=== PATIENT | male | born 1980 | race Caucasian/White ===

== ENCOUNTER → 2016-11-27 | Outpatient (CLI) | payer OTHER ==
[~2016-11-27] MED LIST: AMLO10TA2 PO; AMLO2.5T PO; AMPH20TA2 PO; BUSP-8 PO; CYCL10TA6 PO; FLUT0.0529 NAE; FLUT0.15 NAE; GABA-113 PO; LSN/10125 PO; OXYC-57 PO; PRED50TA PO; SENNTAB13 PO; SULF800T23 PO
[2016-11-27 14:33] LABS: SYNOVIAL FLUID APPEARANCE CLOUDY; SYNOVIAL FLUID COLOR AMBER
== END | disposition home or self-care (01) ==
LOC: C.LAB1850 09:10
PROVIDERS: ATTEND Nurse Practitioner Family
DX: M70.51 Other bursitis of knee, right knee (principal)

== ENCOUNTER → 2016-11-29 | Outpatient (CLI) | payer OTHER ==
--- NOTE | 2016-11-29 08:42 | DIAGNOSTIC IMAGING REPORT ---
RIGHT KNEE 2 VIEWS HISTORY: RIGHT KNEE PAIN Right COMPARISON: None. FINDINGS: No acute fracture or dislocation. No knee effusion. Anterior soft tissue swelling. 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 No radiopaque foreign bodies. IMPRESSION: Anterior soft tissue swelling within the right knee. No acute fractures. Electronically signed by: Marco Frey M.D. 11/29/2016 8:40 AM Dictated Date/Time: 11/29/2016 8:38 AM
== END | disposition home or self-care (01) ==
LOC: C.RAD1850 08:21
PROVIDERS: ATTEND Nurse Practitioner Family
DX: M70.51 Other bursitis of knee, right knee (principal); M79.89 Other specified soft tissue disorders

== ENCOUNTER 2016-11-30 16:05 | Emergency (ER) | payer OTHER ==
[~2016-11-30] VITALS: Ht 185.4 cm; Wt 107.8 kg
[~2016-11-30 16:05] MED LIST changes: -AMLO2.5T PO; -FLUT0.15 NAE; -GABA-113 PO; -SULF800T23 PO
[2016-11-30 16:15] VITALS: BP 135/86; PULSE 79; TEMP 36.6; O2SAT 97; Ht 185.4 cm; Wt 107.8 kg
[2016-11-30] MEDS ORDERED: FLUT0.15 NAE (17:10)
[2016-11-30] MEDS ORDERED: AMLO2.5T PO (17:10)
[2016-11-30] MEDS ORDERED: GABA-113 PO (17:12)
[2016-11-30] MEDS ORDERED: SULF800T23 PO (17:12)
--- NOTE | 2016-11-30 17:47 | DIAGNOSTIC IMAGING REPORT ---
RIGHT LOWER EXTREMITY VENOUS DOPPLER HISTORY: R lower leg swelling Right COMPARISON STUDY: None. FINDINGS: There is normal compressibility, flow, and augmentation within the right lower extremity deep venous system. IMPRESSION: No DVT within the right lower extremity Electronically signed by: Marco Frey M.D. 11/30/2016 5:46 PM Dictated Date/Time: 11/30/2016 5:46 PM
--- NOTE | 2016-12-01 00:45 | EMERGENCY ROOM VISIT NOTE ---
ED Visit Note First contact with patient: 16:51 Chief Complaint: Right lower leg pain and swelling. History of Present Illness: Mr. Dow is a 36-year-old white male who ambulates into the ED complaining of right lower leg pain and swelling. Historically patient reports a proximally 1 week ago after work he noted right knee pain and swelling. He was seen at a local urgent care center and was diagnosed with prepatellar bursitis. He was seen by [facility] 3 days ago; a drainage procedure was performed and on testing was positive for staph aureus. He was started on Bactrim and has had 3 doses of this medication. Patient reports this morning he awoke and noticed that he had swelling of the lower leg and pain in the lower leg which he did not previously have. He contacted [employer] who referred him to the emergency department for a Doppler ultrasound to evaluate for deep vein thrombus. Currently patient reports that he is having an achy and throbbing like pain extending from his knee to just above his ankle throughout the right lower leg. He rates this discomfort 6/10. The pain is nonradiating. The pain worsens with palpation and ambulation. He has not identified any alleviating factors related to the pain. He reports he has been using ibuprofen with no relief of his discomfort. He denies any associated symptoms including fevers, chills, sweats, skin eruptions, skin color changes, previous clots, claudication, cramping, recent surgery/inactivity/extended travel, chest pain, shortness of breath, palpitations, lower extremity weakness/numbness/tingling. Review of Systems: As noted above in history of present illness. 8 body systems were reviewed and found to be negative as noted above. Past Medical History: Hypertension, unspecified back surgery. Current Medications: As previously noted, Adderall, lisinopril/ hydrochlorothiazide, Norvasc 6, Flonase, Neurontin. Allergies to Medications: Patient denies. Social History: Patient is currently employed; he feels safe in his home environment; he denies tobacco and alcohol use. Physical Examination: Vital Signs: Date Time Temp Pulse Resp B/P (MAP) Pulse Ox O2 Delivery O2 Flow Rate FiO2 11/30/16 16:15 36.6 79 18 135/86 97 Room Air GENERAL: 36-year-old male in mild distress due to pain, nontoxic-appearing, afebrile and hemodynamically stable. NEUROLOGICAL: Awake, alert and oriented to person, place and time. Answering questions appropriately and following commands. Limped gait. Good hand eye coordination. No focal motor or sensory deficits. SKIN: Warm, dry and pink. THORAX: Lungs sounds are clear to auscultation and equal bilaterally with symmetrical chest wall. No wheezing, rales or rhonchi. No crepitus, tenderness , subcutaneous air or deformities noted. HEART: Regular rate and rhythm. No gallops, rubs or murmurs are appreciated. ABDOMEN: Flat, soft and nontender. Positive bowel sounds in all quadrants. No guarding, rigidity or organomegaly. RIGHT LOWER EXTREMITY: No gross bony deformity. No shortening or malrotation. No tenderness in the hip or thigh. Patient does have diffuse swelling and tenderness over the anterior aspect of the knee. There is no joint line tenderness or ligamentous laxity. Decreased range of motion to approximately 90 of flexion but he does have full range of motion and extension and hyperextension. Negative patellar apprehension test. Negative ballottement test. His Noa's test was not valid due to his pain; he denies clicking, popping or locking of the knee. Throughout the lower leg there is mild edema but no erythema. He has obvious different incises when compared to the left. I do not appreciate any calf tenderness or cords. He does have full range of motion of the ankle with 4/5 muscle strength at the ankle. Throughout the foot the skin was warm and pink capillary refill is brisk and distal pulses and sensations were intact. ED Course: Patient is assessed as noted above. Patient's medication list was reviewed. Patient was offered pain medication and refused. Venous Doppler Ultrasound: Was reviewed by myself and read by the radiologist and shows no evidence of deep vein thrombus. Patient was educated about today's findings and instructed on his treatment plan ; he verbalizes understanding and agreement with this plan. Clinical Impression: Right lower leg pain and swelling. Decision-Making: Initially my differential diagnosis I considered DVT, worsening infection, muscle strain and other causes. Disposition: Patient discharged home in stable condition accompanied by his ; prior to departure he was reassessed and subjectively reported he was feeling better and rated his discomfort 3/10. Plan: Patient was encouraged to continue his current medications as prescribed. Patient was encouraged to alternate ibuprofen and acetaminophen every 3 hours. Patient was encouraged to keep his knee elevated while at rest and use ice on areas of pain and swelling. Patient was encouraged to follow-up with [employer] and keep his upcoming appointment on Saturday. Patient was encouraged return ED for worsening/uncontrolled pain, uncontrolled swelling, fevers, chest pain, shortness of breath, sensations of heart racing or any new/concerning symptoms.
== END 2016-11-30 18:44 | disposition home or self-care (01) ==
LOC: C.EDB 16:07 → C.EDD 18:44
DX: M79.604 Pain in right leg (principal); M79.89 Other specified soft tissue disorders; I10 Essential (primary) hypertension; Z79.899 Other long term (current) drug therapy

== ENCOUNTER 2024-06-18 08:16 | Inpatient (IN) ==
--- NOTE | 2024-05-14 12:36 | PAT Medication Instructions ---
Medication Instructions Date of Service May 14, 2024 Home Medications Medication Instructions Recorded cyclobenzaprine 10 mg tablet 10 mg PO TID PRN muscle spasm #30 //24 tabs hydrocodone 5 mg-acetaminophen 325 1 - 2 tab PO Q6H PRN pain #12 tabs 04/05/24 mg tablet Medication List: gabapentin 300 mg capsule 600 mg PO TID lisinopril 20 mg-hydrochlorothiazide 12.5 mg tablet 1 tab PO QAM modafinil 100 mg tablet 100 mg PO AMHS omeprazole 20 mg capsule,delayed release 20 mg PO DAILYBB cyclobenzaprine 10 mg tablet 10 mg PO TID PRN muscle spasm iron,carbonyl 65 mg-vitamin C 125 mg tablet,delayed release (Vitron-C) 1 tab PO DAILY mometasone 50 mcg/actuation nasal spray (Nasonex 24hr Allergy) 2 spray intranasal DAILY amlodipine 2.5 mg tablet 5 mg PO QAM hydrocodone 5 mg-acetaminophen 325 mg tablet 1 - 2 tab PO Q6H PRN pain methylphenidate HCl 10 mg tablet 10 mg PO DAILYBL ondansetron HCl 4 mg tablet 4 mg PO Q6 PRN prn zolmitriptan 5 mg disintegrating tablet 5 mg PO UD PRN prn MEDICATION INSTRUCTIONS: Continue as directed mometasone 50 mcg/actuation nasal spray (Nasonex 24hr Allergy) 2 spray intranasal DAILY DO NOT take the morning of surgery lisinopril 20 mg-hydrochlorothiazide 12.5 mg tablet 1 tab PO QAM modafinil 100 mg tablet 100 mg PO AMHS methylphenidate HCl 10 mg tablet 10 mg PO DAILYBL iron,carbonyl 65 mg-vitamin C 125 mg tablet,delayed release (Vitron-C) 1 tab PO DAILY Take morning of surgery With a small sip of water, OTHERWISE NOTHING TO EAT OR DRINK AFTER MIDNIGHT: gabapentin 300 mg capsule 600 mg PO TID cyclobenzaprine 10 mg tablet 10 mg PO TID PRN muscle spasm amlodipine 2.5 mg tablet 5 mg PO QAM omeprazole 20 mg capsule,delayed release 20 mg PO DAILYBB hydrocodone 5 mg-acetaminophen 325 mg tablet 1 - 2 tab PO Q6H PRN pain ondansetron HCl 4 mg tablet 4 mg PO Q6 PRN prn zolmitriptan 5 mg disintegrating tablet 5 mg PO UD PRN prn Take evening before surgery gabapentin 300 mg capsule 600 mg PO TID cyclobenzaprine 10 mg tablet 10 mg PO TID PRN muscle spasm hydrocodone 5 mg-acetaminophen 325 mg tablet 1 - 2 tab PO Q6H PRN pain ondansetron HCl 4 mg tablet 4 mg PO Q6 PRN prn Other Notes If you have any questions please call us at [phone] or [phone] or [phone] or [phone]
--- NOTE | 2024-05-25 08:48 | Anesthesiology Consultation ---
Date of Service May 25, 2024 Assessment & Plan (1) Encounter for pre-operative examination: - Infectious disease screening: Per assessment on 05/25/24: No known recent infectious disease contacts or current infectious disease symptoms. - Patient acceptable risk for surgery pending surgeon-ordered PCP preop evaluation (DIEGO Shukla, appt 05/29). Chart Review Chart Review: Patient seen in Pre Admission Testing Teaching & Discussion Pre-Anesthesia Teaching/Discussion Notes: Instructed NPO after midnight before surgery,except medications with 15 cc of water. Medication instructions provided according to the PAT guidelines. History Surgery Operation Date: 06/18/24 07:45 Proposed Procedures p L5-S1 Decompression and Fusion, with Spinal Cord Monitoring - Teja Moon, Height/Weight Height: 6 ft 1 in Weight: 124.6 kg Allergies Allergy/AdvReac Type Severity Reaction Status Date / Time No Known Allergies Allergy Verified 05/07/24 08:01 Medications Home Medications Medication Instructions Recorded Confirmed Last Taken gabapentin 300 mg capsule 600 mg PO TID 04/25/19 05/07/24 Unknown lisinopril 20 1 tab PO QAM 07/02/23 05/07/24 Unknown mg-hydrochlorothiazide 12.5 mg tablet modafinil 100 mg tablet 100 mg PO AMHS 07/02/23 05/07/24 Unknown omeprazole 20 mg capsule,delayed 20 mg PO DAILYBB 07/02/23 05/07/24 Unknown release cyclobenzaprine 10 mg tablet 10 mg PO TID PRN muscle spasm #30 01/17/24 05/07/24 Unknown tabs iron,carbonyl 65 mg-vitamin C 125 1 tab PO DAILY 01/17/24 05/07/24 Unknown mg tablet,delayed release (Vitron-C) mometasone 50 mcg/actuation nasal 2 spray intranasal DAILY 01/17/24 05/07/24 Unknown spray (Nasonex 24hr Allergy) amlodipine 2.5 mg tablet 5 mg PO QAM 04/04/24 05/07/24 Unknown hydrocodone 5 mg-acetaminophen 325 1 - 2 tab PO Q6H PRN pain #12 tabs 04/05/24 05/07/24 Unknown mg tablet methylphenidate HCl 10 mg tablet 10 mg PO DAILYBL 05/07/24 05/07/24 Unknown ondansetron HCl 4 mg tablet 4 mg PO Q6 PRN prn 05/07/24 05/07/24 Unknown zolmitriptan 5 mg disintegrating 5 mg PO UD PRN prn 05/07/24 05/07/24 Unknown tablet Past Medical History Medical History Allergic rhinitis GERD (gastroesophageal reflux disease) Hypertension Lumbar radiculopathy Migraines Narcolepsy Sleep apnea CPAP (compliant) Exercise / Class Metabolic Activity II 4-5 Yardwork/Stairs/Walk up hill Past Family History Family History Mother Cancer Father Coronary heart disease Past Surgical History Surgical History History of lumbar laminectomy 2013- L5-S1 hemilami/microdiscectomy. T12-L1 intradural tumor excision History of wisdom tooth extraction Past Anesthesia History No Hx of Anesthesia Complications and No Family Hx of Anesthesia Complications History of PONV No Hx of PONV and No Hx of Motion Sickness Social History Smoking Status: Never smoker Do You Dip or Chew Tobacco: No Hx Alcohol Use: No Hx Substance Use: No substance use type: does not use Review of Systems Patient denies chest pain, shortness of breath, dyspnea on exertion, fever, chills, cough, wheezing, palpitations. Physical Exam Vital Signs BP 126/81 P 84 TEMP 98.6 SP02 95%RA RESP 18 Physical Full cervical extension range of motion. Full TMJ range of motion. TMD 4 finger breaths Mallampati Score II Dentition: intact Lungs: clear throughout to auscultation Cardiac: regular rate and rhythm, no murmurs noted Spine: normal Carotid arteries: negative bruit Extremities: no LE edema Lab Results Anesthesia Preop Results Results Anesthesia Widget: WBC 5.41 K/ul (4.8-10.8) 05/16/24 Hgb 16.9 g/dl (14.0-18.0) 05/16/24 Hct 48.9 % (42.0-52.0) 05/16/24 Plt 175 K/uL (130-400) 05/16/24 Na 139 mmol/L (136-145) 05/16/24 K 4.0 mmol/L (3.5-5.1) 05/16/24 Cl 102 mmol/L (98-107) 05/16/24 CO2 30 mmol/L (21-32) 05/16/24 BUN 17 mg/dl (6-23) 05/16/24 Creat 0.92 mg/dl (0.6-1.4) 05/16/24 Glucose Level 99 mg/dl (70-99(Fasting)) 05/16/24 PT 10.6 Seconds (9.0-12.0) 05/25/24 PTT 28 Seconds (21-31) 05/25/24 INR 1.0 (0.9-1.1) 05/25/24 Urine Color Yellow 05/25/24 Urine Appearance Clear (Clear) 05/25/24 Urine pH 6.0 (4.5-7.5) 05/25/24 Urine Specific [place] 1.013 (1.000-1.030) 05/25/24 Urine Protein Negative (Negative) 05/25/24 Urine Glucose (UA) Negative (Negative) 05/25/24 Urine Ketones Negative (Negative) 05/25/24 Urine Blood Negative (Negative) 05/25/24 Urine Nitrite Negative (Negative) 05/25/24 Urine Bilirubin Negative (Negative) 05/25/24 Urine Urobilinogen Negative (Negative) 05/25/24 Urine Leukocyte Esterase Negative (Negative) 05/25/24 Blood Type O Negative 05/25/24 Antibody Screen NEGATIVE 05/25/24 Testing Electrocardiogram Date: 05/25/24 NSR at 73bpm. iRBBB. Chest X-Ray Date: 05/25/24 FINDINGS: Heart size and pulmonary vasculature are normal. No effusion or consolidation. IMPRESSION: No acute findings.
[~2024-06-18 08:16] MED LIST changes: -AMLO10TA2 PO; -AMPH20TA2 PO; -BUSP-8 PO; -CYCL10TA6 PO; +DEXAMETHASONE SOD INJ 4 MG/ML VIAL ONE; -FLUT0.0529 NAE; +LIDOCAINE 2% 2 ML VIAL/AMP(20MG/ML) INFIL ONE; -LSN/10125 PO; +ONDANSETRON INJ 2 MG/ML 2 ML VIAL ONE; -OXYC-57 PO; -PRED50TA PO; +PROPOFOL IV EMULSION 10 MG/ML 20 ML VIAL IV ONE; +ROCURONIUM BROMIDE 10 MG/ML 5 ML VIAL IV ONE; -SENNTAB13 PO
[2024-06-18] MEDS ORDERED: PROPOFOL IV EMULSION 10 MG/ML 20 ML VIAL IV ONE (08:18)
[2024-06-18] MEDS ORDERED: fentaNYL citrate PF 100 MCG/2 ML VIAL ONE ×2 (08:18→10:22)
[2024-06-18] MEDS ORDERED: MIDAZOLAM HCL 1 MG/ML 2ML VIAL ONE (08:18)
[2024-06-18] MEDS ORDERED: DEXAMETHASONE SOD INJ 4 MG/ML VIAL ONE (08:21)
--- OUTSIDE RECORDS SUMMARY | 2024-06-18 08:46 | External Medical Summary | Summary of Care ---
Author Name Unknown Organization [facility] Address [address] [place] [address] Phone [phone] Care Team Providers Care Varnish Remover Name Role Phone Darwin Hoangr Micaela Primary Care Provider Reason for Referral * Precert (Diagnostic Medical) (Within 10 days (routine)) - Authorized Specialty Diagnoses / Procedures Referred By Contac t Referred To Contact Cardiac Studies Diagnoses Aortic root dilatation (HCC) Procedures ECHO, COMPLETE (2D), TRANS-THORACIC Verenice Jimenez CRNP [address] [place] [address] Phone: tel: fax: Referral ID Status Reason Start Date Expiration Date V isits Requested Visits Authorized [id number] Authorized Precert 05/24/[phone] Encounter Details Date Type Department Care Team (Late st Contact Info) Description 06/16/2024 Orders Only Family Practice [facility] [address] [place] [address] Verenice Jimenez CRNP [address] [place] [address] Aortic root dilatation (HCC)* Allergies No known active allergiesdocumented as of this encounter (statuses as of 06/16/2024) Medications CPAP every night at bedtime . Active Ondansetron HCl 4 MG Oral TabletIndications: Migraine without aura and without status migrainosus, not intractable Take 1 Tablet by mouth every 6 hours as needed for Nausea. 30 Tablet 5 4 Active ZOLMitriptan 5 MG Oral Tablet DisintegratingIndi cations:Migraine without aura and without status migrainosus, not intractable Take 5 mg by mouth daily as needed (Migraine). 9 Tablet 11 4 Active Omeprazole 20 MG Oral Capsule Delayed Release (PriLOSEC)Indicati ons:GERD (gastroesophageal reflux disease) TAKE 1 CAPSULE BY MOUTH IN THE MORNING 1 HOUR BEFORE THE FIRST MEAL OF THE DAY 90 Capsule 2 4 Active predniSONE 20 MG Oral Tablet (Deltasone) Take 1 Tablet by mouth in the morning. 4 Active Fluticasone Propionate 50 MCG/ACT Nasal Suspension (Flonase) Administer 1 [place] into nostril in the morning. 16 g 5 4 Active Gabapentin 300 MG Oral Capsule (Neurontin)Indicat ions:Degeneration of intervertebral disc of lumbar region with discogenic back pain and lower extremity pain Take 1 Capsule by mouth in the morning and 1 Capsule at noon and 1 Capsule before bedtime. 270 Capsule 3 4 Active amLODIPine Besylate 5 MG Oral Tablet (Norvasc)Indicatio ns:HTN, goal below 130/80 Take 1 Tablet by mouth in the morning. 90 Tablet 3 4 Active Diclofenac Sodium 1 % External Gel (Voltaren) Apply topically to affected area 3 times a day as needed for Pain, Mild (elbow and forearm pain). Apply to elbow/forearm 50 g 5 4 Active HYDROcodone-Acetam inophen 10-325 MG Oral TabletIndications: Chronic bilateral low back pain with bilateral sciatica,Spondylos is without myelopathy or radiculopathy, thoracic region Take 1 Tablet by mouth every 6 hours as needed for Pain, Severe. 30 Tablet 05/04/2024 2:38 PM EST 5 Active Modafinil 200 MG Oral Tablet (Provigil) TAKE 1 TABLET BY MOUTH IN THE MORNING AND 1 AT NOON 60 Tablet 5 Active Vitron-C 65-125 MG Oral Tablet (Iron-Vitamin C 65-125 mg per tab) Take 1 Tablet by mouth every other day. 45 Tablet 3 5 Active Methylphenidate HCl 10 MG Oral Tablet (Ritalin) Take 1 Tablet by mouth daily at noon. 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 Gastro-esophageal reflux disease without esophag itis 04/07/2024 Spondylosis without myelopat hy or radiculopathy, thoracic region 11/08/2022 Migraine without status migrainosus, not intract able 07/05/2021 Chronic bilateral low back pain with bilateral s ciatica 07/05/2021 Lumbar degenerative disc disease 12/27/2020 Essential hypertension with goal blood pressure less than 140/90 04/02/2016 Obesity, Class I, BMI 30.0-34.9 (see actual BMI) 06/14/2015 Spinal cord tumor 03/09/2014 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 documented as of this encounter (statuses as of 06/16/2024) Immunizations Name Administration Dates Next Due COVID-19 mRNA, LNP-s, No Pre serve, 2-Dose Series (Pfizer) 02/23/2021,05/21/2020,04/30/2020 PPD 10/05/2008,10/01/2006 Seasonal Influenza, Quadriva lent, No Preserve, IM 02/04/2020,02/18/2019,02/03/2017, 0 15 TDAP (age 10 and older)(Boostrix) 04/08/2017 TDAP, Age 7 and older, IM (Adacel) 10/01/2006 documented as of this encounter Social History Tobacco Use Types Packs/Day Years Used Date Smoking Tobacco: Never Smokeless Tobacco: Never Alcohol Use Standard Drinks/Week Comments No 0 (1 standard drink = 0.6 oz pur e alcohol) PHQ-2 Answer Date Recorded PHQ Adult Total Score 0 12/12/2023 Sex and Gender Information Value Date Recorded Sex Assigned at Not on file Legal Sex Male 5:58 AM EST Gender Identity Not on file Sexual Orientation Not on file documented as of this encounter Plan of Treatment Upcoming Encounters Date Type Department Care Team (Late st Contact Info) Description 10/06/2024 8:00 AM EDT Office Visit Family Practice [facility] [address] [facility] [place] [address] Verenice Jimenez CRNP [address] [place] [address] Scheduled Orders Name Type Priority Associated Diagnoses Orde r Schedule ECHO, COMPLETE (2D), TRANS-THORACIC Echocardiology Routine Aortic root dilatation (HCC) Expected: 05/24/2025, Expires: 07/14/2026 Health Maintenance Due Date Last Done Comments COVID-19 Vaccine ( season) 2023 02/23/2021, 05/21/2020, 04/30/2020 Influenza Vaccine (FLU shot) (#1) 2023 02/04/2020, 02/04/2020, 02/18/2019, Additional history exists Depression Screening 12/11/2024 12/12/2023 GFR 05/16/2025 05/16/2024, 03/22, 08/22/2022, Additional history exists Albumin/Creatinine Ratio 08/22/2025 08/22/2022, 10/2020 DTap/Tdap Vaccines (8 - Td or Tdap) 04/08/2027 04/08/2017, 10/01/2006, 11/30/1997, Additional history exists Diabetes Screening 05/16/2027 05/16/2024, 1 06/03/2023, 04/02/2024, Additional history exists Lipid Panel 04/02/2029 04/02/2024, 06/2022, 12/27/2020, Additional history exists Hepatitis B Vaccine Completed 05/26/1997, 05/26/1997, 12/02/1996, Additional history exists HPV (Gardasil) Vaccine Aged Out No lo nger eligible based on patient's age to complete this topic Hepatitis C Screening Discontinued MENINGOCOCCAL (MENACTRA/MENVEO) Aged Out No longer eligible based on patient's age to complete this topic Meningitis B Vaccine (Bexsero/Trumemba) Aged Out No longer eligible based on patient's age to complete this topic Pneumococcal Vaccine: Pediatrics (0 to 5 Years) and At-Risk Patients (6 to 18 Years and 19+ Years) Aged Out No longer eligib le based on patient's age to complete this topic documented as of this encounter Medical Devices Not on filedocumented as of this encounter Visit Diagnoses Diagnosis Aortic root dilatation (HCC)- Primary Thoracic aortic ectasia documented in this encounter Care Teams Varnish Remover Relationship Specialty Start Date End Date Paramjit Hoang DO [address] [place] [address] PCP - General Family Medicine 12/27/20 documented as of this encounter
--- OUTSIDE RECORDS SUMMARY | 2024-06-18 08:46 | External Medical Summary | Summary of Care ---
Author Name Unknown Organization [facility] Address [address] [place] [address] Phone [phone] Care Team Providers Care Priest Name Role Phone Paramjit Hoang Primary Care Provider Reason for Visit * Reason Onset Date Comments Medication Problem 06/17/2024 Encounter Details Date Type Department Care Team (Late st Contact Info) Description 06/17/2024 Telephone Sleep Disorders, [facility] [address] [place] [address] [facility], Nurse Sleep Disorders [address] [place] [address] Medication Problem Allergies No known active allergiesdocumented as of this encounter (statuses as of 06/17/2024) Medications CPAP every night at bedtime . [...] 50 MCG/ACT Nasal Suspension (Flonase) Administer 1 [place] into nostril in the morning. 16 g [...] as of this encounter (statuses as of 06/17/2024) Active Problems Problem Noted Date Diagnosed Date [...] as of this encounter (statuses as of 06/17/2024) Resolved Problems Problem Noted Date Diagnosed Date Resolved Date Aortic root enlargement 12/14/2021 07/2 Overview (12/14/2021): ECHO 12/11/21 - 4.1 cm Raynaud's syndrome 03/09/2008 ADVANCE DIRECTIVE INFORMATION 10/01/2006 02/24/2024 Overview (10/01/2006): Information offered-patient declined. documented as of this encounter (statuses as of 06/17/2024) Immunizations Name Administration Dates Next Due COVID-19 mRNA, LNP-s, No Pre serve, 2-Dose Series (Stremor) 02/23/2021,05/21/2020,04/30/2020 PPD 10/05/2008,10/01/2006 Seasonal Influenza, Quadriva lent, [...] 8:00 AM EDT Office Visit Family Practice [facility] [address] [place] [id number] Verenice Jimenez CRNP [address] [place] [address] Health Maintenance Due Date Last Done Comments COVID-19 Vaccine ( season) 2023 02/23/2021, 05/21/2020, 04/30/2020 Influenza Vaccine (FLU shot) (#1) 2023 02/04/2020, 02/04/2020, 02/18/2019, Additional history exists Depression Screening 12/11/2024 12/12/2023 GFR 05/16/2025 05/16/2024, 03/22, 08/22/2022, Additional history exists Albumin/Creatinine Ratio 08/22/2025 08/22/2022, 0910/2020 DTap/Tdap Vaccines (8 - Td or Tdap) 04/08/2027 04/08/2017, 10/01/2006, 11/30/1997, Additional history exists Diabetes Screening 05/16/2027 05/16/2024, 1 06/03/2023, 04/02/2024, Additional history exists Lipid Panel 04/02/2029 04/02/2024, 050 06/2022, 12/27/2020, Additional history exists Hepatitis B [...] Not on filedocumented as of this encounter Care Teams Priest Relationship Specialty Start Date End Date Paramjit Hoang DO [address] [place] [address] PCP - General Family Medicine 12/27/20 documented as of this encounter
[2024-06-18] MEDS: GABAPENTIN 900 MG DOSE PO SCH (09:17)
[2024-06-18] MEDS: ACETAMINOPHEN 500 MG TAB PO SCH (09:17)
[2024-06-18] MEDS: CeleBREX 200 MG CAP PO SCH (09:18)
[2024-06-18] MEDS: LR 60ML/HR IV SCH (09:18)
[2024-06-18] MEDS ORDERED: ONDANSETRON INJ 2 MG/ML 2 ML VIAL IV PRN ×2 (09:31→15:11)
[2024-06-18] MEDS ORDERED: ePHEDrine sulfate 50 MG/ML AMP IV PRN (09:31)
[2024-06-18] MEDS ORDERED: ATROPINE SULFATE 0.1 MG/ML 10ML SYR IV PRN (09:31)
--- NOTE | 2024-06-18 09:31 | History & Physical Bridge Note ---
Date of Service June 18, 2024 History & Physical Bridge Note I have examined the patient, reviewed the History & Physical and in the interval since the performance of the History & Physical I have noted the following changes of clinical significance: no changes noted
--- NOTE | 2024-06-18 09:32 | History & Physical Report ---
Date of Service June 18, 2024 Assessment & Plan (1) Lumbar disc herniation with radiculopathy: Plan: L5-S1 decompression and fusion History of Present Illness Chief Complaint: Back and leg pain is Primary Care Provider: Paramjit Hoang DO This is a 43-year-old male presents chronic system back and leg pain after failing course of nonoperative care is here for surgical invention. Allergies Allergy/AdvReac Type Severity Reaction Status Date / Time No Known Allergies Allergy Verified 06/18/24 09:04 Home Medications Medication Instructions Recorded Confirmed Type gabapentin 300 mg capsule 600 mg PO TID 04/25/19 06/18/24 History lisinopril 20 1 tab PO QAM 07/02/23 06/18/24 History mg-hydrochlorothiazide 12.5 mg tablet modafinil 100 mg tablet 100 mg PO AMHS 07/02/23 06/18/24 History omeprazole 20 mg capsule,delayed 20 mg PO DAILYBB 07/02/23 06/18/24 History release cyclobenzaprine 10 mg tablet 10 mg PO TID PRN muscle spasm #30 01/17/24 06/18/24 Rx tabs iron,carbonyl 65 mg-vitamin C 125 1 tab PO DAILY 01/17/24 06/18/24 History mg tablet,delayed release (Vitron-C) mometasone 50 mcg/actuation nasal 2 spray intranasal DAILY 01/17/24 06/18/24 History spray (Nasonex 24hr Allergy) amlodipine 2.5 mg tablet 5 mg PO QAM 04/04/24 06/18/24 History hydrocodone 5 mg-acetaminophen 325 1 - 2 tab PO Q6H PRN pain #12 tabs 04/05/24 06/18/24 Rx mg tablet methylphenidate HCl 10 mg tablet 10 mg PO DAILYBL 05/07/24 06/18/24 History ondansetron HCl 4 mg tablet 4 mg PO Q6 PRN prn 05/07/24 06/18/24 History zolmitriptan 5 mg disintegrating 5 mg PO UD PRN prn 05/07/24 06/18/24 History tablet Past Med/Surg History Problem List (Updated 06/18/24 @ 09:31 by Teja Moon DO) Lumbar disc herniation with radiculopathy Encounter for pre-operative examination Lumbar radiculopathy (Acute) Epidural fibrosis Allergic rhinitis Hypertension Narcolepsy Migraine (Acute) Medical History Lumbar radiculopathy GERD (gastroesophageal reflux disease) Sleep apnea CPAP (compliant) Allergic rhinitis Migraines Narcolepsy Hypertension Surgical History History of wisdom tooth extraction History of lumbar laminectomy 2013- R L5-S1 hemilami/microdiscectomy. T12-L1 intradural tumor excision Family History Mother Cancer Father Coronary heart disease Social History Smoking Status: Never smoker Second Hand Exposure: No; Do You Dip or Chew Tobacco: No; Tobacco Cessation Education Requested by Patient: No Hx Alcohol Use: No Hx Substance Use: No Preferred Language: Czech Block Press Operator Required: No Beliefs That Will Affect Care: None Current Living Situation: Significant Other current occupation: maintanence Other Information That Helps Us Care for You: No Feels Safe at Home: Yes Safety Concerns: Feels Safe At This Time Assistive Devices: Glasses Physical Exam Physical Exam: Patient is alert and oriented Heart regular in rhythm lungs clear Results & Data Results & Data Vital Signs (Past 12 Hours) Vital Signs Temp Pulse Resp BP Pulse Ox O2 Del Method 06/18/24 08:58 36.8 C 63 20 152/103 H 96 Room Air
[2024-06-18] MEDS: LACTATED RINGER'S 1,000 ML IV SCH (09:38)
[2024-06-18] MEDS: ceFAZolin 3000MG 3,000 MG/72.5 ML BAG IV SCH (09:59)
[2024-06-18] MEDS ORDERED: ROCURONIUM BROMIDE 10 MG/ML 5 ML VIAL IV ONE ×2 (10:28)
[2024-06-18] MEDS: ceFAZolin 330 MG/ML 1 GM VIAL ONE (10:40)
[2024-06-18] MEDS: BUPIVACAINE/EPINEPHRINE 0.25% 1:200,000 30 ML VIAL ONE (10:40)
[2024-06-18] MEDS: FLOSEAL HEMOSTATIC MATRIX 10ML TOP ONE (11:24)
[2024-06-18] MEDS ORDERED: SUGAMMADEX SODIUM 200 MG/2 ML VIAL IV ONE (11:37)
--- NOTE | 2024-06-18 11:47 | Operative Report ---
Post Operative Report Pre & Post Diagnosis Operation Date: 06/18/24 10:05 Pre-Op Diagnosis: #1 recurrent lumbar disc herniation L5-S1. #2 retrolisthesis L5-S1 with degenerative disc disease. #3 spinal stenosis Post-Op Diagnosis: Same I identified the patient and participated in the time-out.: Yes Procedure Operation Date: 06/18/24 10:05 Actual Procedures #1 revision decompression of bilateral medial facetectomies and foraminotomies L4-L5 L5-S1. #2 posterior spinal fusion L5-S1. #3 placed posterior instrumentation L5-S1. #4 interbody fusion L5-S1. #5 placement of Spira 13 x 26 mm at L5-S1. #6 placement locally harvested morselized autograft and posterior gutters. #7 placement infuse collagen sponge, with Koros in the posterior lateral gutters and os design and interbody space. Surgeon Teja Moon, DO Salesman/Owner Missy Sue Estimated Blood Loss 250 Findings See Below The patient is 6 foot 1 weighing over 120 kg with a BMI in excess of 37. Patient's body habitus did contribute to significant technical difficulty with today with the positioning exposure and the procedure itself. This at least 50% increased operative time. Specimens None Indications This is a 43-year-old male who presents after work injury with recurrent lumbar radiculopathy. Recurrent disc herniation was noted. Subsequently he is here for surgical intervention. Description of Procedure Patient is met with identified informed consent obtained. Patient was then taken to the operative suite underwent intubation placed in a prone position on the Elvin table atop the Da frame. All bony promises well-padded eyes inspected to ensure no external precipice spine. The spinal spine was prepped and draped no sterile fashion. Sharp dissection with the assistance of Bovie cautery performed down to and exposing remaining lamina and transverse processes of L5 and the sacral ala bilaterally. I then performed a revision laminectomy of L5 but noted marked dural ectasia at the previous laminotomy site on the right. There is evidence of previous durotomy defect. I then performed partial laminectomy of L4 including bilateral subarticular decompression to address spinal stenosis. Pedicle screws were then placed L5 and S1 levels bilaterally with assistance of fluoroscopy process anabela placed. By way of a transforaminal approach on the left a discectomy of L5-S1 was performed endplates guided to subcortical mean bone and a 13 x 26 mm Spira cage filled with os design bone graft tapped in position. Rods then locked in final position bilaterally. The transverse processes of L5 and sacral ala burred to subcortical bleeding bone. Infuse collagen sponge with Koros and local autograft placed in posterior gutters. DuraGen was placed over the dura as well as Floseal DuraSeal. This was prophylactic nature. 15 round JOMAR drain inserted. The incision was then incision was then closed with 1 Vicryl the fascia 2-0 Vicryl subcutaneously and 4 Monocryl for fascial closure. Steri-Strips sterile dressing placed. Patient waken taken to PACU in stable condition. Please note spinal cord monitoring was utilized out the procedure no changes noted. Missy Sue was present out the entire surgery involved the patient positioning complex portion of the surgery and final skin closure. I attest to the content of the Intraoperative Record and any orders documented therein. Any exceptions are noted below.
--- NOTE | 2024-06-18 11:49 | Fluoroscopy Report ---
FL lumbar spine 2-3V CLINICAL HISTORY: L5-S1 DECOMPRESSION AND FUSION WITH INTERBODY COMPARISON STUDY: None FLUOROSCOPY TIME: 33 seconds FLUOROSCOPY IMAGES: 2 EXPOSURE DOSE: 34 mGy FINDINGS: Fluoroscopy was provided for L5-S1 metallic fusion. IMPRESSION: Intraoperative fluoroscopy. ACT 112: Negative or not required by law. Electronically signed by: Kirt Miller M.D. 06/18/2024 11:48 AM
[2024-06-18] MEDS: fentaNYL citrate PF 100 MCG/2 ML VIAL IV PRN (12:10)
--- NOTE | 2024-06-18 14:15 | Anesthesiology Progress Note ---
Date of Service June 18, 2024 Anesthesia Post Procedure Vital Signs Vital Signs: Temp Pulse Pulse Resp BP Pulse Ox O2 Del Method 06/18/24 13:30 79 15 126/76 94 Nasal Cannula 06/18/24 13:15 77 15 133/82 98 Nasal Cannula 06/18/24 13:00 67 15 135/77 98 Nasal Cannula 06/18/24 12:50 75 15 128/82 96 Room Air 06/18/24 12:40 97.7 F 81 16 136/81 95 Room Air 06/18/24 12:30 73 17 129/81 96 Oxymask 06/18/24 12:20 73 15 121/77 95 Oxymask 06/18/24 12:10 76 17 133/83 97 Oxymask 06/18/24 12:02 97.3 F L 84 20 123/75 99 Oxymask 06/18/24 08:58 98.2 F 63 20 152/103 H 96 Room Air O2 Flow Rate 06/18/24 13:30 2 06/18/24 13:15 2 06/18/24 13:00 2 06/18/24 12:50 06/18/24 12:40 06/18/24 12:30 4 06/18/24 12:20 4 06/18/24 12:10 6 06/18/24 12:02 8 06/18/24 08:58 Pain Intensity Back: Pain Intensity: 4 Transfer of Care Handoff Completed per policy Notes Mental Status: alert / awake / arousable and participated in evaluation Patient Amnestic to Procedure: Yes Nausea / Vomiting: adequately controlled Pain: adequately controlled Airway Patency, RR, SpO2: stable & adequate BP & HR: stable & adequate Hydration State: stable & adequate Anesthetic Complications: no major complications apparent and Pt Satisfied with anesthetic care
[2024-06-18] MEDS ORDERED: ALUMINUM/MAGNESIUM SUSP 30 ML UDC PO PRN (15:11)
[2024-06-18] MEDS ORDERED: ACETAMINOPHEN 500 MG TAB PO PRN (15:11)
[2024-06-18] MEDS ORDERED: NALOXONE HCL 0.4 MG/1 ML VIAL/CARP IV PRN (15:11)
[2024-06-18] MEDS ORDERED: bisacodyL 10 MG SUPP PR PRN (15:11)
[2024-06-18] MEDS ORDERED: hydrOXYzine HCl 25 MG TAB PO PRN (15:11)
[2024-06-18] MEDS ORDERED: DO NOT ADMINISTER FLU VACCINE PRN (15:11)
[2024-06-18] MEDS ORDERED: diphenhydrAMINE Capsule 25 MG CAP PO PRN (15:11)
[2024-06-18] MEDS ORDERED: PROMETHAZINE 12.5 MG/50.5 ML BAG IV PRN (15:11)
[2024-06-18] MEDS ORDERED: DO NOT ADMINISTER PNEUMOCOCCAL VACCINE PRN (15:11)
[2024-06-18] MEDS ORDERED: METOCLOPRAMIDE HCL INJ 5 MG/ML 2 ML VIAL IV PRN (15:11)
[2024-06-18] MEDS ORDERED: HYDROmorphone INJ 0.5 MG/0.5 ML SYR IV PRN (15:11)
[2024-06-18] MEDS ORDERED: ONDANSETRON 4 MG OD TAB PO PRN (15:11)
[2024-06-18] MEDS ORDERED: SOD PHOSPHATE/SOD BIPHOSPHATE ENEMA 132 ML BTL PR PRN (15:11)
[2024-06-18] MEDS ORDERED: FAMOTIDINE 20 MG TAB PO PRN (15:11)
[2024-06-18] MEDS ORDERED: LORazepam 2 MG/1 ML VIAL IV PRN (15:11)
[2024-06-18] MEDS ORDERED: LORazepam 0.5 MG TAB PO PRN (15:11)
[2024-06-18] MEDS ORDERED: ACETAMINOPHEN 1,000 MG/100 ML VIAL IV PRN (15:11)
[2024-06-18] MEDS ORDERED: MAGNESIUM HYDROXIDE SUSP 30 ML UDC PO PRN (15:11)
[2024-06-18] MEDS: KETOROLAC 30 MG/ML VIAL IV SCH (16:21)
[2024-06-18] MEDS: GABAPENTIN 300 MG CAP PO SCH (16:21)
--- NOTE | 2024-06-18 16:41 | Consultation ---
<Statement entered by Jaun Kent MD - 06/18/24 20:44> I have seen and discussed the case with the collaborating advanced practitioner. I agree with the above H&P. I have reviewed and confirmed the patients medical history, the findings on physical examination, and the patients diagnosis and treatment plan with Shruthi DIOR and agree with the information documented. Patient doing well post procedure. Having some pain, discussed that treating pain in acute setting improves outcomes and to ask for pain medication when he needs it. IS, will trend Hgb and creatinine. I spent a total of 20 minutes coordinating, documenting, and providing care for this patient excluding time spent in the performance of separately billed services. All of the aforementioned completed outside of collaborating with the assigned advanced practitioner for a full treatment plan. I have reviewed the advanced practitioner's documentation, and I agree with, and take responsibility for the plan of care Date of Consultation June 18, 2024 Assessment & Plan (1) Lumbar disc herniation with radiculopathy: (2) Lumbar radiculopathy: (3) Hypertension: Plan This is a 43-year-old male who has significant past medical history of hypertension, aortic root dilatation, GERD, lumbar degenerative disc disease, failed back surgical syndrome, chronic bilateral back pain with radiculopathy, narcolepsy with cataplexy CAROLEE on CPAP and obesity, class I who presents for elective lumbar procedure by Dr. Moon. # Lumbar decompression Fusion L5-S1 EBL 250ml pain/wound management per ortho activity/therapy as prescribed by ortho monitor h/h, pre op 16.9 #HTN: chronic, stable, continue amlodipine, lisinopril/hctz #Narcolepsy: no longer taking medication for this #Mild CAROLEE: cpap at HS #Aortic root dilatation: echo in may shows stability from 2021, 4.2cm DVT ppx: per primary FULL CODE PCP: Dr. Paramjit Hoang Dispo: per primary Thank you for this consultation. We will follow the patient with you during their hospital stay. You can reach a member of the [facility] Hospitalist Team 12/11 via hospitalist role on tiger text. I spent a total of 45 minutes coordinating, documenting and providing care for this patient excluding time spent in the performance of separately billed services or time spent by another provider/QHP. History of Present Illness Requesting Physician: Dr. Moon Reason for Consultation: Post op medical management Attending Physician: Teja Moon, DO History of Present Illness This is a 43-year-old male who has significant past medical history of hypertension, aortic root dilatation, GERD, lumbar degenerative disc disease, failed back surgical syndrome, chronic bilateral back pain with radiculopathy, narcolepsy with cataplexy CAROLEE on CPAP and obesity, class I who presents for elective lumbar procedure by Dr. Moon. at bedside who helps elicit hx. He underwent an L5-S1 lumbar decompression fusion. History was obtained from patient as well as external chart review. He underwent a preop echocardiogram on 06/01 which revealed LVEF 60 to 64%, no significant valvular disease, aortic root mildly enlarged 4.2 cm which can Perative to prior study in 2021 there is no significant change. In regards to his hypertension he is managed with lisinopril, hydrochlorothiazide and amlodipine. Allergies Allergy/AdvReac Type Severity Reaction Status Date / Time No Known Allergies Allergy Verified 06/18/24 09:04 Home Medications Medication Instructions Recorded Confirmed Type gabapentin 300 mg capsule 600 mg PO TID 04/25/19 06/18/24 History lisinopril 20 1 tab PO QAM 07/02/23 06/18/24 History mg-hydrochlorothiazide 12.5 mg tablet modafinil 100 mg tablet 100 mg PO AMHS 07/02/23 06/18/24 History omeprazole 20 mg capsule,delayed 20 mg PO DAILYBB 07/02/23 06/18/24 History release cyclobenzaprine 10 mg tablet 10 mg PO TID PRN muscle spasm #30 01/17/24 06/18/24 Rx tabs iron,carbonyl 65 mg-vitamin C 125 1 tab PO DAILY 01/17/24 06/18/24 History mg tablet,delayed release (Vitron-C) mometasone 50 mcg/actuation nasal 2 spray intranasal DAILY 01/17/24 06/18/24 History spray (Nasonex 24hr Allergy) amlodipine 2.5 mg tablet 5 mg PO QAM 04/04/24 06/18/24 History hydrocodone 5 mg-acetaminophen 325 1 - 2 tab PO Q6H PRN pain #12 tabs 04/05/24 06/18/24 Rx mg tablet methylphenidate HCl 10 mg tablet 10 mg PO DAILYBL 05/07/24 06/18/24 History ondansetron HCl 4 mg tablet 4 mg PO Q6 PRN prn 05/07/24 06/18/24 History zolmitriptan 5 mg disintegrating 5 mg PO UD PRN prn 05/07/24 06/18/24 History tablet Patient History Medical History Lumbar radiculopathy GERD (gastroesophageal reflux disease) Sleep apnea CPAP (compliant) Allergic rhinitis Migraines Narcolepsy Hypertension Surgical History History of wisdom tooth extraction History of lumbar laminectomy 2013- L5-S1 hemilami/microdiscectomy. T12-L1 intradural tumor excision Family History Mother Cancer Father Coronary heart disease Social History Smoking Status: Never smoker Second Hand Exposure: No; Do You Dip or Chew Tobacco: No; Tobacco Cessation Education Requested by Patient: No Hx Alcohol Use: No Hx Substance Use: No Preferred Language: Latvian Data Processing Consultant Required: No Beliefs That Will Affect Care: None Current Living Situation: Significant Other current occupation: maintanence Other Information That Helps Us Care for You: No Feels Safe at Home: Yes Safety Concerns: Feels Safe At This Time Assistive Devices: Glasses Review of Systems Review of Systems: All systems reviewed & are unremarkable except as noted in HPI & below Physical Exam Physical Exam: Gen: WD/WN, M, lying in bed, NAD, A&O x3 HEENT: Normocephalic, atraumatic, conjunctivae moist, sclerae anicteric, mucous membranes moist. Lung: nml resp CV: VSS Extremities: No edema, JOMAR drain with serosang drainage Skin: Warm, no rash Results & Data Vital Signs (Past 12 Hours) Vital Signs Temp Pulse Pulse Resp BP BP Pulse Ox 06/18/24 15:57 36.9 C 102 H 18 152/81 H 95 06/18/24 15:15 36.8 C 87 16 133/82 94 06/18/24 14:30 36.4 C L 86 16 134/82 06/18/24 14:00 76 14 123/85 93 06/18/24 13:45 79 13 134/84 93 06/18/24 13:30 79 15 126/76 94 06/18/24 13:15 77 15 133/82 98 06/18/24 13:00 67 15 135/77 98 06/18/24 12:50 75 15 128/82 96 06/18/24 12:40 36.5 C 81 16 136/81 95 06/18/24 12:30 73 17 129/81 96 06/18/24 12:20 73 15 121/77 95 06/18/24 12:10 76 17 133/83 97 06/18/24 12:02 36.3 C L 84 20 123/75 99 06/18/24 08:58 36.8 C 63 20 152/103 H 96 O2 Del Method O2 Flow Rate 06/18/24 15:57 Room Air 06/18/24 15:15 Room Air 06/18/24 14:30 Nasal Cannula 2 06/18/24 14:00 Nasal Cannula 2 06/18/24 13:45 Nasal Cannula 2 06/18/24 13:30 Nasal Cannula 2 06/18/24 13:15 Nasal Cannula 2 06/18/24 13:00 Nasal Cannula 2 06/18/24 12:50 Room Air 06/18/24 12:40 Room Air 06/18/24 12:30 Oxymask 4 06/18/24 12:20 Oxymask 4 06/18/24 12:10 Oxymask 6 06/18/24 12:02 Oxymask 8 06/18/24 08:58 Room Air Laboratory Results I have independently reviewed and interpreted patient's admitting labs including CBC, CMP, PTT, PT/INR, mag and troponin. Diagnostic Findings Lumbar Spine X-Ray 06/18/24 10:05 FL lumbar spine 2-3V CLINICAL HISTORY: L5-S1 DECOMPRESSION AND FUSION WITH INTERBODY COMPARISON STUDY: None FLUOROSCOPY TIME: 33 seconds FLUOROSCOPY IMAGES: 2 EXPOSURE DOSE: 34 mGy FINDINGS: Fluoroscopy was provided for L5-S1 metallic fusion. IMPRESSION: Intraoperative fluoroscopy. ACT 112: Negative or not required by law. Electronically signed by: Kirt Miller M.D. 06/18/2024 11:48 AM Medications Administered Current Inpatient Medications Acetaminophen (Acetaminophen 500 Mg Tab) 1,000 mg PO PREOP OUMAR Stop: 06/18/24 18:00 Last Admin: 06/18/24 09:17 Dose: 1,000 mg Acetaminophen (Acetaminophen 500 Mg Tab) 1,000 mg PO Q8H PRN PRN Reason: MILD Pain Scale 1,2,3 & Pre PT Stop: 07/18/24 15:10 Al Hydrox/Mg Hydrox/Simethicone (Aluminum/Magnesium Susp 30 Ml Udc) 30 ml PO Q6H PRN PRN Reason: Dyspepsia Stop: 07/18/24 15:10 Amlodipine Besylate (Amlodipine Besylate 5 Mg Tab) 5 mg PO QAM OUMAR Stop: 07/19/24 08:59 Atropine Sulfate (Atropine Sulfate 0.1 Mg/Ml 10ml Syr) 0.5 mg IV Q1M PRN PRN Reason: PACU Use-HR<40 &/or Bradycardi Stop: 06/18/24 17:31 Bisacodyl (Bisacodyl 10 Mg Supp) 10 mg MS DAILY PRN PRN Reason: Constipation Stop: 07/18/24 15:10 Celecoxib (Celebrex 200 Mg Cap) 200 mg PO PREOP OUMAR Stop: 06/18/24 18:00 Last Admin: 06/18/24 09:18 Dose: 200 mg Cyclobenzaprine HCl (Cyclobenzaprine Hcl 10 Mg Tab) 10 mg PO TID PRN PRN Reason: muscle spasm Stop: 07/18/24 15:10 Diphenhydramine HCl (Diphenhydramine Capsule 25 Mg Cap) 25 mg PO Q6H PRN PRN Reason: Allergic Rhinitis/Insomnia Stop: 07/18/24 15:10 Ephedrine Sulfate (Ephedrine Sulfate 50 Mg/Ml Amp) 5 mg IV Q5M PRN PRN Reason: PACU Use Only-SBP<90 mmHg Stop: 06/18/24 17:31 Famotidine (Famotidine 20 Mg Tab) 20 mg PO Q12H PRN PRN Reason: Dyspepsia Stop: 07/18/24 15:10 Fentanyl Citrate (Fentanyl Citrate Pf 100 Mcg/2 Ml Vial) 25 mcg IV Q5M PRN PRN Reason: PACU Use Only-Pain Stop: 06/18/24 17:31 Last Admin: 06/18/24 12:15 Dose: 25 mcg Ferrous Sulfate (Ferrous Sulfate 325 Mg Tab) 325 mg PO DAILY OUMAR Stop: 07/19/24 08:59 Fluticasone Propionate (Fluticasone Propionate Na Spr 16 Gm Btl) 2 sprays JU DAILY [facility] Stop: 07/19/24 08:59 Gabapentin (Gabapentin 900 Mg Dose) 900 mg PO PREOP OUMAR Stop: 06/18/24 18:00 Last Admin: 06/18/24 09:17 Dose: 900 mg Gabapentin (Gabapentin 300 Mg Cap) 600 mg PO TID OUMAR Stop: 07/18/24 15:10 Last Admin: 06/18/24 16:21 Dose: 600 mg Lisinopril/HCTZ (Lisinopril/Hctz 20/12.5mg 1 Tab Tab) 1 tab PO QAM [facility] Stop: 07/19/24 08:59 Hydromorphone HCl (Hydromorphone Inj 0.5 Mg/0.5 Ml Syr) 0.5 mg IV Q3H PRN PRN Reason: MODERATE Pain (Scale 4,5,6) & Pre PT Stop: 07/02/24 15:10 Hydromorphone HCl (Hydromorphone Inj 1 Mg/Ml Syringe) 1 mg IV Q3H PRN PRN Reason: SEVERE Pain (Scale 7,8,9,10) Stop: 07/02/24 15:10 Hydroxyzine HCl (Hydroxyzine Hcl 25 Mg Tab) 25 mg PO Q8H PRN PRN Reason: Anxiety Stop: 07/18/24 15:10 Lactated Ringer's (Lr) 1,000 mls @ 60 mls/hr IV .[id number] OUMAR Stop: 06/18/24 22:39 Last Admin: 06/18/24 09:18 Dose: Not Given Cefazolin Sodium (Ancef 3000mg) 3,000 mg in 72.5 mls @ 130 mls/hr IV PREOP [facility]; Protocol Stop: 06/18/24 18:00 Last Infusion: 06/18/24 15:12 Dose: Infused Lactated Ringer's (Lr) 1,000 mls @ 15 mls/hr IV .Q24H OUMAR Stop: 06/19/24 05:59 Last Infusion: 06/18/24 09:57 Dose: Infused Acetaminophen (Ofirmev) 1,000 mg in 100 mls @ 400 mls/hr IV Q8H PRN PRN Reason: Pain Rating 1-3 & Pre PT Stop: 06/19/24 15:11 Cefazolin Sodium (Ancef 2000mg) 2,000 mg in 15 mls @ 3.75 mls/min IV Q8H OUMAR; Protocol Stop: 06/19/24 02:03 Promethazine HCl (Phenergan) 12.5 mg in 50.5 mls @ 202 mls/hr IV Q6H PRN PRN Reason: Nausea And Vomiting Stop: 07/18/24 15:10 Dexamethasone 6 mg/ Syringe 1.5 mls @ 1 mls/min IV DAILY OUMAR Stop: 06/21/24 09:02 Influenza Virus Vaccine Quadrival (Do Not Administer Flu Vaccine) 1 each N/A PRN PRN PRN Reason: Notification Stop: 07/18/24 15:10 Ketorolac Tromethamine (Ketorolac 30 Mg/Ml Vial) 30 mg IV Q6 [facility] Stop: 06/19/24 12:01 Last Admin: 06/18/24 16:21 Dose: 30 mg Lorazepam (Lorazepam 0.5 Mg Tab) 0.5 mg PO Q8H PRN PRN Reason: Sedation/Anxiety Stop: 07/18/24 15:10 Lorazepam (Lorazepam 2 Mg/1 Ml Vial) 0.5 mg IV Q8H PRN PRN Reason: Sedation/Anxiety Stop: 07/18/24 15:10 Magnesium Hydroxide (Magnesium Hydroxide Susp 30 Ml Udc) 30 ml PO Q24H PRN PRN Reason: Constipation Stop: 07/18/24 15:10 Methylphenidate HCl (Methylphenidate Hcl 10 Mg Tablet) 10 mg PO DAILYBL [facility] Stop: 07/03/24 10:29 Metoclopramide HCl (Metoclopramide Hcl Inj 5 Mg/Ml 2 Ml Vial) 10 mg IV Q6H PRN PRN Reason: Nausea &/or Vomiting Stop: 07/18/24 15:10 Miscellaneous (Zolmitriptan--Order Awaiting Action) 1 each N/A QS [facility] Stop: 07/18/24 15:59 Last Admin: 06/18/24 16:22 Dose: Not Given Modafinil (Modafinil 100 Mg Tab) 100 mg PO AMHS [facility] Stop: 07/18/24 20:59 Naloxone HCl (Naloxone Hcl 0.4 Mg/1 Ml Vial/Carp) 0.1 mg IV Q5M PRN PRN Reason: Oversedation/Resp depression Stop: 07/18/24 15:10 Ondansetron HCl (Ondansetron Inj 2 Mg/Ml 2 Ml Vial) 4 mg IV ONCE PRN PRN Reason: PACU Use Only-Nausea/Vomiting Stop: 06/18/24 17:31 Ondansetron HCl (Ondansetron Inj 2 Mg/Ml 2 Ml Vial) 4 mg IV Q6H PRN PRN Reason: Nausea &/or Vomiting Stop: 07/18/24 15:10 Ondansetron HCl (Ondansetron 4 Mg Od Tab) 4 mg PO Q6H PRN PRN Reason: Nausea Stop: 07/18/24 15:10 Oxycodone HCl (Oxycodone Hcl Ir 5 Mg Tab (Immediate Release)) 5 - 10 mg PO Q4H PRN PRN Reason: Pain & Pre PT Stop: 07/02/24 15:10 Pantoprazole Sodium (Pantoprazole 40 Mg Tab) 40 mg PO DAILYBB OUMAR Stop: 07/19/24 06:29 Pneumococcal Polyvalent Vaccine (Do Not Administer Pneumococcal Vaccine) 1 each N/A PRN PRN PRN Reason: Notification Stop: 07/18/24 15:10 Polyethylene Glycol (Polyethylene (Miralax) 17 Gm Pack) 17 gm PO Q6 OUMAR Stop: 07/19/24 05:59 Senna/Docusate Sodium (Docusate Sodium/Senna 50/8.6mg Tab) 2 tab PO HS OUMAR Stop: 07/18/24 20:59 Sodium Biphosphate/Sodium Phosphate (Sod Phosphate/Sod Biphosphate Enema 132 Ml Btl) 132 ml MS ONE PRN PRN Reason: Constipation Stop: 07/18/24 15:10 Tramadol HCl (Tramadol Hcl 50 Mg Tablet) 50 - 100 mg PO Q4H PRN PRN Reason: Moderate-Severe pain & Pre PT Stop: 07/18/24 15:10 ECG Additional Comments: I have independently reviewed and interpreted patient's admitting EKG which revealed: 71 NSR inc RBBB, qtc 443ms
[2024-06-18] MEDS: ceFAZolin 2000MG 2,000 MG/15 ML SYR IV SCH (18:08)
[2024-06-18] MEDS: modafiniL 100 MG TAB PO SCH (21:23)
[2024-06-18] MEDS: DOCUSATE SODIUM/SENNA 50/8.6MG TAB PO SCH (21:23)
[2024-06-19] MEDS: PANTOprazole 40 MG TAB PO SCH (06:25)
[2024-06-19] MEDS: POLYETHYLENE (MIRALAX) 17 GM PACK PO SCH (06:31)
[2024-06-19 06:54] LABS: Basophils # (auto) 0.02 K/uL (0.00-0.20); Basophils % (auto) 0.1 %; Eosinophils # (auto) 0.01 K/uL (0.00-0.50); Eosinophils % (auto) 0.1 %; Hematocrit (blood only) 44.1 % (42.0-52.0); Hemoglobin 15.4 g/dl (14.0-18.0); Immature Granulocytes # (auto) 0.08 K/uL (0.01-0.20); Immature Granulocytes % (auto) 0.6 %; Lymphocytes % (auto) 13.1 %; Mean Corpuscular Hemoglobin 29.9 pg (25.0-34.0); Mean Corpuscular Hgb Conc 34.9 g/dL (32.0-36.0); Mean Corpuscular Volume 85.6 fL (80.0-100.0); Mean Platelet Volume 9.9 fL (9.4-12.4); Monocytes # (auto) 1.42 K/uL (0.11-0.59); Monocytes % (auto) 10.4 %; Neutrophils # (auto) 10.36 K/uL (1.40-6.50); Neutrophils % (auto) 75.7 %; Platelet Count 220 K/uL (130-400); RDW Coefficient of Variation 12.6 % (11.5-14.5); RDW Standard Deviation 39.3 fL (36.4-46.3); Red Blood Count 5.15 M/uL (4.70-6.10); White Blood Count 13.69 K/ul (4.8-10.8)
[2024-06-19 07:24] LABS: BUN Creatinine Ratio 24.4 (10-20); Calcium 8.5 mg/dl (8.6-10.3); Creatinine Clr Calc Pharmacy 158.6 ml/min; Potassium 3.8 mmol/L (3.5-5.1)
[2024-06-19] MEDS: amLODIPine BESYLATE 5 MG TAB PO SCH (08:28)
[2024-06-19] MEDS: dexAMETHasone 6 MG in SYRINGE 0 ML IV SCH (08:28)
[2024-06-19] MEDS: FLUTICASONE PROPIONATE NA SPR 16 GM BTL NAE SCH (08:28)
[2024-06-19] MEDS: FERROUS SULFATE 325 MG TAB PO SCH (08:28)
[2024-06-19] MEDS: LISINOPRIL/HCTZ 20/12.5MG 1 TAB TAB PO SCH (08:29)
--- NOTE | 2024-06-19 10:04 | Orthopedic Progress Note ---
Date of Service June 19, 2024 Assessment & Plan (1) Lumbar disc herniation with radiculopathy: Plan: At this time we will have him maintain bed to chair walking in the room only. Drain was discontinued. Pending his progress we will initiate physical therapy tomorrow. Admission and Anticipated Discharge Date Admission Date: June 18, 2024 Subjective Back pain controlled leg pain improved. Denies any headache nausea or vomiting. No leg pain. Physical Exam Physical Exam: Patient is in the chair at the bedside. Is comfortable. Good strength testing. Results & Data Vital Signs (Past 12 Hours) Vital Signs Temp Pulse Pulse Resp BP BP Pulse Ox 06/19/24 08:36 171/118 H 06/19/24 08:20 58 L 18 151/84 H 95 06/19/24 08:18 120/84 06/19/24 08:05 37.0 C 76 18 140/82 96 06/19/24 02:35 36.7 C 80 14 132/77 93 06/18/24 23:30 36.8 C 82 16 142/84 H 92 O2 Del Method 06/19/24 08:36 06/19/24 08:20 Room Air 06/19/24 08:18 06/19/24 08:05 Room Air 06/19/24 02:35 Room Air 06/18/24 23:30 Room Air Queries Orthopedic Spine Obesity: Yes
[2024-06-19] MEDS: METHYLPHENIDATE HCL 10 MG TABLET PO SCH (10:15)
[2024-06-19] MEDS: oxyCODONE HCL IR 5 MG TAB (IMMEDIATE RELEASE) PO PRN (13:29)
--- NOTE | 2024-06-19 15:42 | Hospitalist Progress Note ---
Date of Service June 19, 2024 Assessment & Plan (1) Lumbar disc herniation with radiculopathy: (2) Lumbar radiculopathy: (3) Hypertension: Plan This is a 43-year-old male who has significant past medical history of hypertension, aortic root dilatation, GERD, lumbar degenerative disc disease, failed back surgical syndrome, chronic bilateral back pain with radiculopathy, narcolepsy with cataplexy CAROLEE on CPAP and obesity, class I who presents for elective lumbar procedure by Dr. Moon. # Lumbar decompression Fusion L5-S1 EBL 250ml pain/wound management per ortho activity/therapy as prescribed by ortho monitor h/h, pre op 16.9 down to 15.4 expected #HTN: chronic, stable, continue amlodipine, lisinopril/hctz #Narcolepsy: no longer taking medication for this #Mild CAROLEE: cpap at HS #Aortic root dilatation: echo in may shows stability from 2021, 4.2cm DVT ppx: per primary FULL CODE PCP: Dr. Paramjit Hoang Dispo: per primary Thank you for this consultation. We will follow the patient with you during their hospital stay. You can reach a member of the [facility] Hospitalist Team 12/11 via hospitalist role on tiger text. I spent a total of 30 minutes coordinating, documenting and providing care for this patient excluding time spent in the performance of separately billed services or time spent by another provider/QHP. Admission and Anticipated Discharge Date Admission Date: June 18, 2024 Subjective Reported vasovagal episode after removal of drain and IV site; however, ultimately much improved Also noted urinary retention which resolved this am without catheterization Doing well overall and with minimal post op discomfort Physical Exam Constitutional: WD/WN, vitals as above Respiratory: normal respiratory effort, lungs clear to auscultation Cardiovascular: RRR, no murmur, no edema Gastrointestinal (Abdomen): normal bowel sounds, soft, nontender, no hepatosplenomegaly Results & Data Results & Data Vital Signs (Past 12 Hours) Vital Signs Temp Pulse Pulse Resp BP BP Pulse Ox 06/19/24 14:19 36.6 C 100 H 16 159/97 H 95 06/19/24 11:50 36.9 C 84 18 150/88 H 96 06/19/24 08:36 171/118 H 06/19/24 08:20 58 L 18 151/84 H 95 06/19/24 08:18 120/84 06/19/24 08:05 37.0 C 76 18 140/82 96 O2 Del Method 06/19/24 14:19 Room Air 06/19/24 11:50 Room Air 06/19/24 08:36 06/19/24 08:20 Room Air 06/19/24 08:18 06/19/24 08:05 Room Air Laboratory Results Short CBC 06/19/24 Range/Units 05:46 WBC 13.69 H (4.8-10.8) K/ul Hgb 15.4 (14.0-18.0) g/dl Hct 44.1 (42.0-52.0) % Plt Count 220 (130-400) K/uL BMP 06/19/24 05:46 Sodium 139 Potassium 3.8 Chloride 105 Carbon Dioxide 27 BUN 21 Creatinine 0.86 Glucose 107 H Calcium 8.5 L Medications Administered Home Medications Medication Instructions Recorded Confirmed Last Taken gabapentin 300 mg capsule 600 mg PO TID 04/25/19 06/18/24 06/18/24 08:00 lisinopril 20 1 tab PO QAM 07/02/23 06/18/24 06/17/24 07:00 mg-hydrochlorothiazide 12.5 mg tablet modafinil 100 mg tablet 100 mg PO AMHS 07/02/23 06/18/24 06/17/24 12:00 omeprazole 20 mg capsule,delayed 20 mg PO DAILYBB 07/02/23 06/18/24 06/18/24 07:00 release cyclobenzaprine 10 mg tablet 10 mg PO TID PRN muscle spasm #30 01/17/24 06/18/24 Unknown tabs iron,carbonyl 65 mg-vitamin C 125 1 tab PO DAILY 01/17/24 06/18/24 06/17/24 07:00 mg tablet,delayed release (Vitron-C) mometasone 50 mcg/actuation nasal 2 spray intranasal DAILY 01/17/24 06/18/24 06/14/24 08:00 spray (Nasonex 24hr Allergy) amlodipine 2.5 mg tablet 5 mg PO QAM 04/04/24 06/18/24 Unknown hydrocodone 5 mg-acetaminophen 325 1 - 2 tab PO Q6H PRN pain #12 tabs 04/05/24 06/18/24 Unknown mg tablet methylphenidate HCl 10 mg tablet 10 mg PO DAILYBL 05/07/24 06/18/24 06/17/24 08:00 ondansetron HCl 4 mg tablet 4 mg PO Q6 PRN prn 05/07/24 06/18/24 Unknown zolmitriptan 5 mg disintegrating 5 mg PO UD PRN prn 05/07/24 06/18/24 06/14/24 22:30 tablet oxycodone 5 mg tablet 5 mg PO Q6H PRN pain #30 tabs 06/19/24 Unknown tramadol 50 mg tablet 50 mg PO Q6H PRN pain, moderate 06/19/24 Unknown #30 tabs Active Medications Generic Name Dose Route Start Last Admin Trade Name Chiq PRN Reason Stop Dose Admin Amlodipine Besylate 5 mg 06/19/24 09:00 06/19/24 08:28 Amlodipine Besylate 5 Mg Tab PO 07/19/24 08:59 5 mg QAM OUMAR Administration Ferrous Sulfate 325 mg 06/19/24 09:00 06/19/24 08:28 Ferrous Sulfate 325 Mg Tab PO 07/19/24 08:59 325 mg DAILY OUMAR Administration Fluticasone Propionate 2 sprays 06/19/24 09:00 06/19/24 08:28 Fluticasone Propionate Na Spr 16 Gm Btl JU 07/19/24 08:59 2 sprays DAILY OUAMR Administration Gabapentin 600 mg 06/18/24 15:11 06/19/24 13:30 Gabapentin 300 Mg Cap PO 07/18/24 15:10 600 mg TID OUMAR Administration Lisinopril/HCTZ 1 tab 06/19/24 09:00 06/19/24 08:29 Lisinopril/Hctz 20/12.5mg 1 Tab Tab PO 07/19/24 08:59 1 tab QAM OUMAR Administration Dexamethasone 6 mg/ Syringe 1.5 mls @ 1 mls/min 06/19/24 09:00 06/19/24 08:28 IV 06/21/24 09:02 1 mls/min DAILY OUMAR Administration Methylphenidate HCl 10 mg 06/19/24 10:30 06/19/24 10:15 Methylphenidate Hcl 10 Mg Tablet PO 07/03/24 10:29 10 mg DAILYBL OUMAR Administration Miscellaneous 1 each 06/18/24 16:00 06/19/24 08:27 Zolmitriptan--Order Awaiting Action N/A 07/18/24 15:59 Not Given QS OUMAR Modafinil 100 mg 06/18/24 21:00 06/19/24 08:29 Modafinil 100 Mg Tab PO 07/18/24 20:59 100 mg AMHS OUMAR Administration Oxycodone HCl 5 - 10 mg 06/18/24 15:11 06/19/24 13:29 Oxycodone Hcl Ir 5 Mg Tab (Immediate Release) PO 07/02/24 15:10 5 mg Q4H PRN Administration Pain & Pre PT Pantoprazole Sodium 40 mg 06/19/24 06:30 06/19/24 06:25 Pantoprazole 40 Mg Tab PO 07/19/24 06:29 40 mg DAILYBB OUMAR Administration Polyethylene Glycol 17 gm 06/19/24 06:00 06/19/24 13:28 Polyethylene (Miralax) 17 Gm Pack PO 07/19/24 05:59 17 gm Q6 OUMAR Administration Senna/Docusate Sodium 2 tab 06/18/24 21:00 06/18/24 21:23 Docusate Sodium/Senna 50/8.6mg Tab PO 07/18/24 20:59 2 tab HS OUMAR Administration
--- NOTE | 2024-06-20 08:22 | Orthopedic Progress Note ---
Date of Service June 20, 2024 Assessment & Plan (1) Lumbar disc herniation with radiculopathy: Plan: At this time initiate physical therapy. Most likely discharge home tomorrow. Admission and Anticipated Discharge Date Admission Date: June 18, 2024 Subjective Back pain controlled leg pain improved. Has been ambulating the halls. Physical Exam Physical Exam: Patient is constricted testing. Appears comfortable. Results & Data Vital Signs (Past 12 Hours) Vital Signs Temp Pulse Resp BP Pulse Ox O2 Del Method 06/20/24 07:41 36.5 C 90 16 160/93 H 94 Room Air Queries Orthopedic Spine Obesity: Yes
[2024-06-20] MEDS: traMADol HCL 50 MG TABLET PO PRN (09:30)
--- NOTE | 2024-06-20 11:15 | Hospitalist Progress Note ---
Date of Service June 20, 2024 Assessment & Plan (1) Lumbar disc herniation with radiculopathy: (2) Lumbar radiculopathy: (3) Hypertension: Plan This is a 43-year-old male who has significant past medical history of hypertension, aortic root dilatation, GERD, lumbar degenerative disc disease, failed back surgical syndrome, chronic bilateral back pain with radiculopathy, narcolepsy with cataplexy CAROLEE on CPAP and obesity, class I who is s/p elective lumbar procedure by Dr. Moon on 06/18 No active changes to medical management # Lumbar decompression Fusion L5-S1 EBL 250ml pain/wound management per ortho activity/therapy as prescribed by ortho monitor h/h, pre op 16.9 down to 15.4 expected no further trending required #HTN: chronic, stable, continue amlodipine, lisinopril/hctz #Narcolepsy: modafinil #Mild CAROLEE: cpap at HS #Aortic root dilatation: echo in may shows stability from 2021, 4.2cm DVT ppx: per primary FULL CODE PCP: Dr. Paramjit Hoang Dispo: per primary Thank you for this consultation. We will follow the patient with you during their hospital stay. You can reach a member of the [facility] Hospitalist Team 12/11 via hospitalist role on tiger text. I spent a total of 30 minutes coordinating, documenting and providing care for this patient excluding time spent in the performance of separately billed services or time spent by another provider/QHP. Admission and Anticipated Discharge Date Admission Date: June 18, 2024 Subjective Reports feeling more sore than day prior, but overall states that he is better and symptoms are controlled on current regimen denies any new symptoms at this time, +BM Physical Exam Constitutional: WD/WN, vitals as above Respiratory: normal respiratory effort, lungs clear to auscultation Cardiovascular: RRR, no murmur, no edema Gastrointestinal (Abdomen): normal bowel sounds, soft, nontender, no hepatosplenomegaly Results & Data Results & Data Vital Signs (Past 12 Hours) Vital Signs Temp Pulse Resp BP Pulse Ox O2 Del Method 06/20/24 07:41 36.5 C 90 16 160/93 H 94 Room Air Medications Administered Home Medications Medication Instructions Recorded Confirmed Last Taken gabapentin 300 mg capsule 600 mg PO TID 04/25/19 06/18/24 06/18/24 08:00 lisinopril 20 1 tab PO QAM 07/02/23 06/18/24 06/17/24 07:00 mg-hydrochlorothiazide 12.5 mg tablet modafinil 100 mg tablet 100 mg PO AMHS 07/02/23 06/18/24 06/17/24 12:00 omeprazole 20 mg capsule,delayed 20 mg PO DAILYBB 07/02/23 06/18/24 06/18/24 07:00 release cyclobenzaprine 10 mg tablet 10 mg PO TID PRN muscle spasm #30 01/17/24 06/18/24 Unknown tabs iron,carbonyl 65 mg-vitamin C 125 1 tab PO DAILY 01/17/24 06/18/24 06/17/24 07:00 mg tablet,delayed release (Vitron-C) mometasone 50 mcg/actuation nasal 2 spray intranasal DAILY 01/17/24 06/18/24 06/14/24 08:00 spray (Nasonex 24hr Allergy) amlodipine 2.5 mg tablet 5 mg PO QAM 04/04/24 06/18/24 Unknown hydrocodone 5 mg-acetaminophen 325 1 - 2 tab PO Q6H PRN pain #12 tabs 04/05/24 06/18/24 Unknown mg tablet methylphenidate HCl 10 mg tablet 10 mg PO DAILYBL 05/07/24 06/18/24 06/17/24 08:00 ondansetron HCl 4 mg tablet 4 mg PO Q6 PRN prn 05/07/24 06/18/24 Unknown zolmitriptan 5 mg disintegrating 5 mg PO UD PRN prn 05/07/24 06/18/24 06/14/24 22:30 tablet oxycodone 5 mg tablet 5 mg PO Q6H PRN pain #30 tabs 06/19/24 Unknown tramadol 50 mg tablet 50 mg PO Q6H PRN pain, moderate 06/19/24 Unknown #30 tabs Active Medications Generic Name Dose Route Start Last Admin Trade Name Freq PRN Reason Stop Dose Admin Amlodipine Besylate 5 mg 06/19/24 09:00 06/20/24 09:18 Amlodipine Besylate 5 Mg Tab PO 07/19/24 08:59 5 mg QAM OMUAR Administration Ferrous Sulfate 325 mg 06/19/24 09:00 06/20/24 09:17 Ferrous Sulfate 325 Mg Tab PO 07/19/24 08:59 325 mg DAILY OUMRA Administration Fluticasone Propionate 2 sprays 06/19/24 09:00 06/20/24 09:17 Fluticasone Propionate Na Spr 16 Gm Btl JU 07/19/24 08:59 2 sprays DAILY OUMAR Administration Gabapentin 600 mg 06/18/24 15:11 06/20/24 09:17 Gabapentin 300 Mg Cap PO 07/18/24 15:10 600 mg TID OUMAR Administration Lisinopril/HCTZ 1 tab 06/19/24 09:00 06/20/24 09:18 Lisinopril/Hctz 20/12.5mg 1 Tab Tab PO 07/19/24 08:59 1 tab QAM OUMAR Administration Dexamethasone 6 mg/ Syringe 1.5 mls @ 1 mls/min 06/19/24 09:00 06/20/24 09:16 IV 06/21/24 09:02 1 mls/min DAILY OUMAR Administration Methylphenidate HCl 10 mg 06/19/24 10:30 06/20/24 10:46 Methylphenidate Hcl 10 Mg Tablet PO 07/03/24 10:29 Not Given DAILYBL OUMAR Miscellaneous 1 each 06/18/24 16:00 06/20/24 09:16 Zolmitriptan--Order Awaiting Action N/A 07/18/24 15:59 Not Given QS OUMAR Modafinil 100 mg 06/18/24 21:00 06/20/24 11:58 Modafinil 100 Mg Tab PO 07/18/24 20:59 100 mg AMHS OUMAR Administration Oxycodone HCl 5 - 10 mg 06/18/24 15:11 06/20/24 10:23 Oxycodone Hcl Ir 5 Mg Tab (Immediate Release) PO 07/02/24 15:10 10 mg Q4H PRN Administration Pain & Pre PT Pantoprazole Sodium 40 mg 06/19/24 06:30 06/20/24 06:20 Pantoprazole 40 Mg Tab PO 07/19/24 06:29 40 mg DAILYBB OUMAR Administration Polyethylene Glycol 17 gm 06/19/24 06:00 06/20/24 12:02 Polyethylene (Miralax) 17 Gm Pack PO 07/19/24 05:59 17 gm Q6 OUMAR Administration Senna/Docusate Sodium 2 tab 06/18/24 21:00 06/19/24 21:34 Docusate Sodium/Senna 50/8.6mg Tab PO 07/18/24 20:59 2 tab HS OUMAR Administration Tramadol HCl 50 - 100 mg 06/18/24 15:11 06/20/24 09:30 Tramadol Hcl 50 Mg Tablet PO 07/18/24 15:10 100 mg Q4H PRN Administration Moderate-Severe pain & Pre PT
[2024-06-20] MEDS: CYCLOBENZAPRINE HCL 10 MG TAB PO PRN (14:07)
--- NOTE | 2024-06-21 08:34 | Hospitalist Progress Note ---
Date of Service June 21, 2024 Assessment & Plan (1) Lumbar disc herniation with radiculopathy: (2) Lumbar radiculopathy: (3) Hypertension: Plan This is a 43-year-old male who has significant past medical history of hypertension, aortic root dilatation, GERD, lumbar degenerative disc disease, failed back surgical syndrome, chronic bilateral back pain with radiculopathy, narcolepsy with cataplexy CAROLEE on CPAP and obesity, class I who is s/p elective lumbar procedure by Dr. Moon on 06/18 No active changes to medical management. Patient is medically stable for dispo per primary service # Lumbar decompression Fusion L5-S1 EBL 250ml pain/wound management per ortho activity/therapy as prescribed by ortho monitor h/h, pre op 16.9 down to 15.4 expected no further trending required #HTN: chronic, stable, continue amlodipine, lisinopril/hctz #Narcolepsy: modafinil #Mild CAROLEE: cpap at HS #Aortic root dilatation: echo in may shows stability from 2021, 4.2cm DVT ppx: per primary FULL CODE PCP: Dr. Paramjit Hoang Dispo: per primary Thank you for this consultation. We will follow the patient with you during their hospital stay. You can reach a member of the [facility] Hospitalist Team 12/11 via hospitalist role on tiger text. I spent a total of 20 minutes coordinating, documenting and providing care for this patient excluding time spent in the performance of separately billed services or time spent by another provider/QHP. Admission and Anticipated Discharge Date Admission Date: June 18, 2024 Subjective evaluated patient sitting in bedside chair with breakfast patient reports increased appetite today, notes he has been ambulatory without a walker states that discomfort is controlled with current regimen reports eagerness to go home Physical Exam Constitutional: WD/WN, vitals as above Respiratory: normal respiratory effort, lungs clear to auscultation Cardiovascular: RRR, no murmur, no edema Gastrointestinal (Abdomen): normal bowel sounds, soft, nontender, no hepatosplenomegaly Results & Data Results & Data Medications Administered Home Medications Medication Instructions Recorded Confirmed Last Taken gabapentin 300 mg capsule 600 mg PO TID 04/25/19 06/18/24 06/18/24 08:00 lisinopril 20 1 tab PO QAM 07/02/23 06/18/24 06/17/24 07:00 mg-hydrochlorothiazide 12.5 mg tablet modafinil 100 mg tablet 100 mg PO AMHS 07/02/23 06/18/24 06/17/24 12:00 omeprazole 20 mg capsule,delayed 20 mg PO DAILYBB 07/02/23 06/18/24 06/18/24 07:00 release cyclobenzaprine 10 mg tablet 10 mg PO TID PRN muscle spasm #30 01/17/24 06/18/24 Unknown tabs iron,carbonyl 65 mg-vitamin C 125 1 tab PO DAILY 01/17/24 06/18/24 06/17/24 07:00 mg tablet,delayed release (Vitron-C) mometasone 50 mcg/actuation nasal 2 spray intranasal DAILY 01/17/24 06/18/24 06/14/24 08:00 spray (Nasonex 24hr Allergy) amlodipine 2.5 mg tablet 5 mg PO QAM 04/04/24 06/18/24 Unknown hydrocodone 5 mg-acetaminophen 325 1 - 2 tab PO Q6H PRN pain #12 tabs 04/05/24 06/18/24 Unknown mg tablet methylphenidate HCl 10 mg tablet 10 mg PO DAILYBL 05/07/24 06/18/24 06/17/24 08:00 ondansetron HCl 4 mg tablet 4 mg PO Q6 PRN prn 05/07/24 06/18/24 Unknown zolmitriptan 5 mg disintegrating 5 mg PO UD PRN prn 05/07/24 06/18/24 06/14/24 22:30 tablet oxycodone 5 mg tablet 5 mg PO Q6H PRN pain #30 tabs 06/19/24 Unknown tramadol 50 mg tablet 50 mg PO Q6H PRN pain, moderate 06/19/24 Unknown #30 tabs Active Medications Generic Name Dose Route Start Last Admin Trade Name Freq PRN Reason Stop Dose Admin Amlodipine Besylate 5 mg 06/19/24 09:00 06/21/24 07:49 Amlodipine Besylate 5 Mg Tab PO 07/19/24 08:59 5 mg QAM OUMAR Administration Cyclobenzaprine HCl 10 mg 06/18/24 15:11 06/20/24 14:07 Cyclobenzaprine Hcl 10 Mg Tab PO 07/18/24 15:10 10 mg TID PRN Administration muscle spasm Ferrous Sulfate 325 mg 06/19/24 09:00 06/21/24 07:49 Ferrous Sulfate 325 Mg Tab PO 07/19/24 08:59 325 mg DAILY OUMAR Administration Fluticasone Propionate 2 sprays 06/19/24 09:00 06/21/24 07:49 Fluticasone Propionate Na Spr 16 Gm Btl JU 07/19/24 08:59 2 sprays DAILY OUMAR Administration Gabapentin 600 mg 06/18/24 15:11 06/21/24 07:49 Gabapentin 300 Mg Cap PO 07/18/24 15:10 600 mg TID OUMAR Administration Lisinopril/HCTZ 1 tab 06/19/24 09:00 06/21/24 07:50 Lisinopril/Hctz 20/12.5mg 1 Tab Tab PO 07/19/24 08:59 1 tab QAM OUMAR Administration Dexamethasone 6 mg/ Syringe 1.5 mls @ 1 mls/min 06/19/24 09:00 06/21/24 07:51 IV 06/21/24 09:02 1 mls/min DAILY OUMAR Administration Methylphenidate HCl 10 mg 06/19/24 10:30 06/20/24 10:46 Methylphenidate Hcl 10 Mg Tablet PO 07/03/24 10:29 Not Given DAILYBL OUMAR Miscellaneous 1 each 06/18/24 16:00 06/21/24 07:48 Zolmitriptan--Order Awaiting Action N/A 07/18/24 15:59 Not Given QS OUMAR Modafinil 100 mg 06/18/24 21:00 06/21/24 07:50 Modafinil 100 Mg Tab PO 07/18/24 20:59 100 mg AMHS OUMAR Administration Oxycodone HCl 5 - 10 mg 06/18/24 15:11 06/21/24 04:34 Oxycodone Hcl Ir 5 Mg Tab (Immediate Release) PO 07/02/24 15:10 10 mg Q4H PRN Administration Pain & Pre PT Pantoprazole Sodium 40 mg 06/19/24 06:30 06/21/24 05:39 Pantoprazole 40 Mg Tab PO 07/19/24 06:29 40 mg DAILYBB OUMAR Administration Senna/Docusate Sodium 2 tab 06/18/24 21:00 06/20/24 20:02 Docusate Sodium/Senna 50/8.6mg Tab PO 07/18/24 20:59 2 tab HS OUMAR Administration Tramadol HCl 50 - 100 mg 06/18/24 15:11 06/21/24 07:50 Tramadol Hcl 50 Mg Tablet PO 07/18/24 15:10 100 mg Q4H PRN Administration Moderate-Severe pain & Pre PT
[2024-06-21 08:43] VITALS: BP 141/89; PULSE 84; RESP 16; TEMP 98.6; O2SAT 98
--- NOTE | 2024-06-21 09:43 | Discharge Summary ---
Date of Service June 21, 2024 Admission HPI Per Admitting Provider This is a 43-year-old male presents chronic system back and leg pain after failing course of nonoperative care is here for surgical invention. Principal Diagnosis Record lumbar disc herniation with radiculopathy Discharge Data Allergies Allergy/AdvReac Type Severity Reaction Status Date / Time No Known Allergies Allergy Verified 06/18/24 09:04 Consultations 06/18/24 15:11 Consult Hospitalist Routine Procedures Performed Operation Date: 06/18/24 10:05 Actual Procedures p L5-S1 Decompression and Fusion, Spinal Cord Monitoring - Teja Moon DO Ordered Studies 06/18/24 10:05 [place] lumbar spine 2-3V Routine Hospital Course (1) Lumbar disc herniation with radiculopathy: Patient underwent revision decompression fusion trial as well as taken orthopedic for postoperative. Postop he progressed appropriately. Pain controlled. Good strength testing. Simply discharged home. Discharge orders and instructions from the chart for further view. Total Time Total Time Spent Total Time Spent (In Minutes): 20 minutes Discharge Plan Discharge Items Patient Disposition: Home - Self-Care Reason For Visit: Recurrent Herniation of Lumbar Disc Discharge Diagnosis: Recurrent lumbar disc herniation with radiculopathy Activity: As commented below Non-emergency contact: Primary Care Provider Call non-emergency contact if: you have any medication questions Follow-up/Referrals: Paramjit Hoang DO [Primary Care Provider] - Diet: Regular Addtl Attending Provider Instructions: ACTIVITY RECOMMENDATIONS: SELF CARE INSTRUCTIONS AFTER THORACIC/LUMBAR FUSIONS 1. You may walk to your tolerance. It is good exercise for your legs and back. Expect some back and intermittent leg aches and pains. 2. You may perform "counter-top" level activities (make a sandwich, hang with a project, etc.). 3. No bending or lifting of more than 10 pounds or back twisting of any nature (roll like a log when turning in bed). 4. You may ride in a car for 20-30 minutes at a time. No driving until after your first visit with your doctor. 5. Frequent changes of position and restricting sitting to 30 minutes at a time will help limit the amount of back spasms and stiffness you may experience. 6. You may discontinue the use of ambulatory aids (cane, crutches, etc.) once your strength and confidence allow. 7. You may bullet slugs inspector the shower and let water strike your incision when you arrive home at least once daily. Do not take a tub bath, sit in a hot tub or go into a swimming pool until after your first recheck in the office. 8. You may resume previous diet. SPECIAL CARE INSTRUCTIONS: VERY IMPORTANT TO READ AND REVIEW A. Your surgical incision has been closed with a cosmetic suture under the skin that will dissolve in about 6 weeks. In 14 days, you can use a pair of clean scissors and cut the suture that is left outside of the skin at the ends of your incision. 1. The small skin tapes can be removed 7 days after surgery if they have not fallen off by that point. 2. You may keep the wound open to air as much as possible to promote healing after post-op day number 5 unless told otherwise by your doctor. 3. If you think the wound looks like it is becoming infected (redness or worsening drainage) and/or you are experiencing fever, chill or worsening back pain and muscle spasms, contact the office so that we may evaluate you as soon as possible. B. Complications are uncommon, but please contact us if you have any signs or symptoms of: 1. wound infection (fever higher than 102.5 degrees F, redness, separation of wound, drainage, or increasing pain from the incision) 2. blood clots in legs (pain, swelling, redness and warmth in legs) 3. urinary tract infection (fever higher than 102.5 degrees F, burning upon urination or increased frequency of urination) 4. nerve problems (inability to walk on your toes or heels, numbness, loss of bowel or bladder control) 5. any other symptoms that concern you C. Please call the office at if you have any concerns or questions about your operation or recovery. D. No smoking! Smoking drastically decreases the chance of a solid fusion. E. Do not take any anti-inflammatory medications (Indocin, Advil, Motrin, Aspirin, Naprosyn, etc.) as these may inhibit the chance of a solid fusion. Tylenol is okay to take for pain. MANAGING PAIN AFTER SPINAL SURGERY 1. Narcotic medication is intended for short-term use and will be provided for surgical pain. Surgical pain usually lasts for a period of 4-6 weeks. Narcotic medication includes Percocet, Vicodin, Darvocet, Tylenol #3 or Lortab. 2. Longer-term pain is more appropriately treated with non-narcotic medication such as Tylenol ES. 3. Muscle spasm is not appropriately treated with narcotics. Muscle relaxers such as Soma, Flexeril or Skelaxin can be used along with Tylenol ES. 4. Remember that we all live with some "aches and pains". This is not unusual or uncommon after an injury or as we get older. a. Back pain is expected and may include muscle spasms for 4 to 6 weeks after surgery. The pain should gradually improve. If the pain worsens for no apparent reason, please contact the office. b. Intermittent leg pain may also be experienced and should not be concerned about unless it worsens for no apparent reason. If so, please contact the office. 5. We will provide appropriate medication within the normal guidelines of their prescribed use. We will also be very cautious and aware of potential abuse and extended duration of patients' medication needs. a. Pain medications are for your comfort and to assist with sleep and rest so that the tissue can heal. They are not provided in order to return to normal activity and should not be used through the day. To do so or worsening pain at night can result from ongoing tissue damage and development of tolerance to the prescribed medicine. 6. Please allow 2-3 days to process refills. Prescriptions will not be mailed but must be picked up at the office. FOLLOW UP VISIT: Keep your scheduled follow-up appointment. Any questions, please call the office at . Pending Studies at Discharge: No Stand-Alone Forms: [facility], Smoking Cessation Medications and [place] Order Prescriptions: New tramadol 50 mg tablet 50 mg PO Q6H PRN (Reason: pain, moderate) Qty: 30 0RF oxycodone 5 mg tablet 5 mg PO Q6H PRN (Reason: pain) Qty: 30 0RF Continued Vitron-C 65 mg iron- 125 mg tablet,delayed release (DR/EC) 1 tab PO DAILY mometasone [Nasonex 24hr Allergy] 50 mcg/actuation spray,non-aerosol 2 spray intranasal DAILY Rx Instructions: administer into each nostril cyclobenzaprine 10 mg tablet 10 mg PO TID PRN (Reason: muscle spasm) Qty: 30 0RF gabapentin 300 mg Capsule 600 mg PO TID lisinopril-hydrochlorothiazide 20-12.5 mg tablet 1 tab PO QAM omeprazole 20 mg capsule,delayed release(DR/EC) 20 mg PO DAILYBB modafinil 100 mg tablet 100 mg PO AMHS amlodipine 2.5 mg tablet 5 mg PO QAM hydrocodone-acetaminophen 5-325 mg tablet 1 - 2 tab PO Q6H MDD 6 PRN (Reason: pain) Qty: 12 0RF Rx Instructions: Initial Treatment methylphenidate HCl 10 mg tablet 10 mg PO DAILYBL zolmitriptan 5 mg tablet,disintegrating 5 mg PO UD PRN (Reason: prn) ondansetron HCl 4 mg tablet 4 mg PO Q6 PRN (Reason: prn) Discharge Orders: Discharge Order (Routine); Ordered 06/21/24 Ordered By: Teja Moon Admission Data Admit Date/Time: 06/18/24 11:52 Attending Provider: Teja Moon Admit Provider: Teja Moon Primary Care Provider: Paramjit Hoang Other Providers: Jodie Fox
[2024-06-21] MEDS: dexAMETHasone 8 MG in SYRINGE 0 ML IV STA (10:51)
[2024-06-21] MEDS: HYDROmorphone INJ 1 MG/ML SYRINGE IV PRN (12:33)
[2024-06-21] MEDS ORDERED: oxyCODONE IR HOME PACK PO ONE (14:15)
== END 2024-06-21 15:04 | disposition home or self-care (01) | DRG 402 ==
LOC: ASU 08:16 → 3E 11:52